=== PATIENT | male | born 1970 | race American Indian/Alaskan Native ===

== ENCOUNTER 2021-05-16 12:23 | Emergency (ER) | payer SELFPAY ==
[2021-05-16] MEDS ORDERED: predniSONE 20 MG TAB PO ONE (12:46)
--- NOTE | 2021-05-16 12:52 | Emergency Department Report ---
HPI - General Chief Complaint: Dyspnea/Respdistress Time Seen by Provider: 05/16/21 12:35 - HPI HPI: MSE 1 The patient is a 51-year-old male presenting with chief complaint of shortness of breath. Patient has a history of asthma states for the past 3 days he has had wheezing and shortness of breath consistent with his asthma. Patient states his nebulizer and MDI only helps temporarily. Patient states this morning he continued to have shortness of breath and cough prompting him to come to the emergency department. Patient denies history of fever. Patient states she has been vaccinated against Covid receiving his second Moderna vaccine approximately 3 to 4 months ago. ED Past Medical Hx - Past Medical History Previous Medical History?: Yes Hx Asthma: Yes Additional medical history: SVT - Surgical History Additional Surgical History: Cervical spine plate - Family History Family history: no significant - Social History Smoking Status: Never Smoker Substance Use Type: None (Denies illicit drug use), Alcohol (Occasional) - Medications Home Medications: Home Medications Medication Instructions Recorded Confirmed Last Taken Type Albuterol Sulfate [Albuterol 0.63% 0.63 mg IH TID PRN #75 ml 05/16/21 Unknown Rx NEBS] Ipratropium/Albuter (Nf) 2 puff IH QID #1 inha 05/16/21 Unknown Rx [Combivent (Nf)] Prednisone [predniSONE 10 mg 10 mg PO .TAPER #1 tab.ds.pk 05/16/21 Unknown Rx (6-Day Pack, 21 Tabs)] ED Review of Systems ROS: Stated complaint: SOB Other details as noted in HPI Constitutional: denies: fever Eyes: denies: eye pain ENT: denies: throat pain Respiratory: cough, shortness of breath, wheezing Cardiovascular: denies: chest pain Endocrine: no symptoms reported Gastrointestinal: denies: vomiting Genitourinary: denies: dysuria Musculoskeletal: myalgia Neurological: denies: headache Physical Exam - Physical Exam Vital Signs: Vital Signs 05/16/21 12:28 Temperature 98.1 F Pulse Rate 117 H Respiratory 20 Rate Blood Pressure 149/104 [Left] O2 Sat by Pulse 97 Oximetry Physical Exam: GENERAL: The patient is well-developed well-nourished male sitting in chair not appearing to be in acute distress. [] HEENT: Normocephalic. Atraumatic. Extraocular motions are intact. Patient has moist mucous membranes. NECK: Supple. Trachea midline CHEST/LUNGS: Diffuse wheezing. There is no respiratory distress noted. HEART/CARDIOVASCULAR: Regular. There is tachycardia. There is no gallop rub or murmur. ABDOMEN: Abdomen is soft, nontender. Patient has normal bowel sounds. There is no abdominal distention. SKIN: There is no rash. There is no edema. There is no diaphoresis. NEURO: The patient is awake, alert, and oriented. The patient is cooperative. The patient has no focal neurologic deficits. The patient has normal speech. GCS 15 MUSCULOSKELETAL: There is no evidence of acute injury. ED Course Vital Signs 05/16/21 12:28 Temperature 98.1 F Pulse Rate 117 H Respiratory 20 Rate Blood Pressure 149/104 [Left] O2 Sat by Pulse 97 Oximetry - Reevaluation(s) Reevaluation #1: 05/16/21 16:16 Patient states he feels great. Lungs CTA bilaterally ED Medical Decision Making - Radiology Data Radiology results: report reviewed (Chest x-ray), image reviewed (Chest x-ray) interpreted by me: Chest x-ray-no definite focal infiltrates, no pneumothorax [facility] [address] [place] [address] XRay Report Signed Patient: UBALDO HARRISON MR#: [id number] : 1970 Acct:[id number] Age/Sex: 51 / M ADM Date: 05/16/21 Loc: ED Attending Dr: Ordering Physician: CEDRICK CASTILLO MD Date of Service: 05/16/21 Procedure(s): XR chest routine 2V Accession Number(s): [id number] cc: CEDRICK CASTILLO MD Fluoro Time In Minutes: CHEST 2 VIEWS INDICATION: Cough, shortness of breath. COMPARISON: none FINDINGS: Support devices: None. Heart: Within normal limits. Lungs/pleura: No acute air space or interstitial disease. No pneumothorax. Additional findings: None. IMPRESSION: No acute findings. Signer Name: Antonio Plascencia Jr, MD Signed: 05/16/2021 3:55 PM Workstation Name: [id number] Transcribed By: TTR Dictated By: ANTONIO PLASCENCIA JR, MD Electronically Authenticated By: ANTONIO PLASCENCIA JR, MD Signed Date/Time: 05/16/211554 DD/ 54 TD/TT: Print Cancel - Differential Diagnosis Acute asthma exacerbation, pneumonia, bronchitis Critical care attestation.: If time is entered above; I have spent that time in minutes in the direct care of this critically ill patient, excluding procedure time. ED Disposition Clinical Impression: Acute asthma exacerbation Disposition: HOME / SELF CARE / HOMELESS Is pt being admited?: No Does the pt Need Aspirin: No Condition: Stable Instructions: Asthma, Adult Additional Instructions: Return to the emergency department should you develop worsening symptoms, inability to tolerate food or liquids, high fever or any other concerns Prescriptions: Albuterol Sulfate [Albuterol 0.63% NEBS] 0.63 mg IH TID PRN #75 ml PRN Reason: Wheezing Ipratropium/Albuter (Nf) [Combivent (Nf)] 2 puff IH QID #1 inha Prednisone [predniSONE 10 mg (6-Day Pack, 21 Tabs)] 10 mg PO .TAPER #1 tab.ds.pk Referrals: PRIMARY CARE, [Primary Care Provider] - 3-5 Days Time of Disposition: 16:17
[2021-05-16] MEDS: ALBUTEROL 2.5 MG/3 ML NEBU IH ONE ×2 (13:15→14:08)
[2021-05-16] MEDS: IPRATROPIUM 0.02% NEBU 2.5 ML IH ONE ×2 (13:15→14:08)
--- NOTE | 2021-05-16 16:00 | XRay Report ---
CHEST 2 VIEWS INDICATION: Cough, shortness of breath. COMPARISON: none FINDINGS: Support devices: None. Heart: Within normal limits. Lungs/pleura: No acute air space or interstitial disease. No pneumothorax. Additional findings: None. IMPRESSION: No acute findings. Signer Name: Antonio Storey Jr, MD Signed: 05/16/2021 3:55 PM Workstation Name: [id number]
[2021-05-16 16:44] VITALS: BP 132/87
--- NOTE | 2021-05-18 12:05 | Electrocardiograph Report ---
[facility] Test Date: 2021-05-16 Test Time: 12:31:54 Pat Name: UBALDO HARRISON Department: Room: Gender: M Senior Loan Processor: JAYLENE : 1970 Requested By: CEDRICK CASTILLO Order Number: [id number] Reading MD: Stanislaw Reeves Measurements Intervals [place] Rate: 114 P: 78 [place]: 169 QRS: 74 QRSD: 71 T: 45 QT: 323 QTc: 445 Interpretive Statements Sinus tachycardia Biatrial enlargement No previous ECG available for comparison Electronically Signed On 05-18-2021 12:04:40 EST by Stanislaw Reeves
== END 2021-05-16 16:43 | disposition home or self-care (01) ==
LOC: ED 12:23
DX: J45.901 Unspecified asthma with (acute) exacerbation (principal); Z72.89 Other problems related to lifestyle
CPT/HCPCS: 71046; 93005; 94640; 99283; J7512; 94644